=== PATIENT | female | born 1945 | race Caucasian/White ===

== ENCOUNTER 2017-03-16 12:52 | Observation (INO) | payer MEDICARE, OTHER ==
[~2017-03-16] VITALS: Ht 172.7 cm; Wt 85.8 kg
[~2017-03-16 12:52] MED LIST: ALPRAZOLAM0.5 MG PO; AMBIEN10 MG PO; ASPIRIN EC81 MG PO; CALCITRIOL0.5 MCG PO; COREG 25MG TAB25 MG PO; COREG6.25 MG PO; LIPITOR TAB 2020 MG PO; LISINOPRIL2.5 MG PO; NITROSTAT0.4 MG SL; PHOSLO 667 MG667 MG PO; PLAVIX 75 MG TA75 MG PO; POTASSIUM CHLO10 ME1 PO
[2017-03-16] MEDS ORDERED: CLARITIN 10MG T10 MG PO (21:52)
[2017-03-16] MEDS ORDERED: CALCITRIOL0.5 MCG PO (21:53)
[2017-03-16] MEDS ORDERED: COREG 3.125M3.125 MG PO (21:54)
[2017-03-16] MEDS ORDERED: AMOXICILLIN500 MG PO (21:55)
[2017-03-16] MEDS ORDERED: POTASSIUM20 MEQ/11 PO (21:56)
[2017-03-16 23:47] LABS: HEMOGLOBIN 10.2 gm/dl (12.3-15.3); RED BLOOD COUNT 3.2 M/UL (4.00-5.10); WHITE BLOOD COUNT 10.2 K/UL (4.5-11.0)
[2017-03-17 06:15] LABS: HEMOGLOBIN 9.6 gm/dl (12.3-15.3); RED BLOOD COUNT 3.05 M/UL (4.00-5.10); WHITE BLOOD COUNT 9.3 K/UL (4.5-11.0)
[2017-03-17 23:47] LABS: HEMOGLOBIN 8.9 gm/dl (12.3-15.3); RED BLOOD COUNT 2.78 M/UL (4.00-5.10)
[2017-03-17 23:48] LABS: WHITE BLOOD COUNT 12.8 K/UL (4.5-11.0)
[2017-03-18 04:18] LABS: HEMOGLOBIN 8.4 gm/dl (12.3-15.3); RED BLOOD COUNT 2.67 M/UL (4.00-5.10)
== END 2017-03-18 16:34 | disposition other institution (70) ==
LOC: PROG CARE 12:52
PROVIDERS: Internal Medicine; Internal Medicine Cardiovascular Disease; Internal Medicine Nephrology; ADMIT Hospitalist
DX: I21.4 Non-ST elevation (NSTEMI) myocardial infarction (principal); I34.0 Nonrheumatic mitral (valve) insufficiency; I25.10 Atherosclerotic heart disease of native coronary artery without angina pectoris; I12.0 Hypertensive chronic kidney disease with stage 5 chronic kidney disease or end stage renal disease; N18.6 End stage renal disease; D63.1 Anemia in chronic kidney disease; Z99.2 Dependence on renal dialysis; E87.5 Hyperkalemia; Z87.891 Personal history of nicotine dependence; Z91.041 Radiographic dye allergy status; Z79.82 Long term (current) use of aspirin; Z79.899 Other long term (current) drug therapy; Z98.890 Other specified postprocedural states
CPT/HCPCS: 36415; 80048; 80053; 82550; 82553; 84484; 85014; 85018; 85027; 85347; 85610; 85730; 90935; 90937; 93005; 93571; 93926; 96374; 96376; C1725; C1769; C1887; C1894; G0257; G0378; G0379; J0153; J0461; J1644; J2250; J2405; J3010; J7030; J7040; Q0163; Q9965